=== PATIENT | female | born 2005 | race Caucasian/White ===

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

== ENCOUNTER 2023-04-10 02:13 | Emergency (ER) | payer MEDICAID ==
[~2023-04-10] VITALS: Ht 165.1 cm; Wt 75.4 kg
[~2023-04-10 02:13] MED LIST: ACE3T PO; BACL5TAB2 PO
[2023-04-10] MEDS ORDERED: ONDANSETRON ODT 4 MG TAB PO ONE (02:45)
[2023-04-10 03:10] LABS: Basophils # (auto) 0.1 10 ^3/uL (0-0.2); Basophils % (auto) 0.6 % (0.0-2.0); Eosinophils # (auto) 0.2 10 ^3/uL (0-0.8); Eosinophils % (auto) 2.1 % (0.0-7.0); Hematocrit 39.6 % (36.0-46.0); Hemoglobin 12.9 g/dL (12.2-16.2); Lymphocytes # (auto) 0.9 10 ^3/uL (0.4-5.4); Lymphocytes % (auto) 11.2 % (10.0-50.0); Mean Corpuscular Hemoglobin 28.3 pg (28.0-32.0); Mean Corpuscular Hgb Conc. 32.6 g/dL (32.0-36.0); Mean Corpuscular Volume 86.8 fL (80.0-100.0); Monocytes # (auto) 0.5 10 ^3/uL (0-1.3); Neutrophils # (auto) 6.8 10 ^3/uL (1.6-8.6); Neutrophils % (auto) 80.1 % (37.0-80.0); Red Blood Cells 4.56 10^6/uL (4.0-5.20); Red Cell Distribution Width 15.9 % (11.8-14.3); White Blood Cell 8.5 10^3/uL (4.4-10.8)
[2023-04-10 03:23] VITALS: BP 116/71; TEMP 97.8; O2SAT 96
[2023-04-10 03:32] LABS: Alanine Aminotransferase 35 U/L (7-40); Albumin 5.1 g/dL (3.2-4.8); Alkaline Phosphatase 66 U/L (46-116); Anion Gap 9 (5-15); Aspartate Aminotransferase 20 U/L (13-40); BUN/Creatinine Ratio 9.3 (10.0-20.0); Bilirubin, Total 1.3 mg/dL (0.2-1.0); Blood Urea Nitrogen 9 mg/dL (9-23); Calcium 9.7 mg/dL (8.7-10.4); Carbon Dioxide 23 mmol/L (20-30); Chloride 109 mmol/L (98-107); Glucose 103 mg/dL (74-106); Lipase 47 U/L (12-53); Potassium 4.1 mmol/L (3.5-5.1); Sodium 141 mmol/L (136-145); Total Protein 7.9 g/dL (5.7-8.2)
[2023-04-10] MEDS ORDERED: ZOFR4T PO (04:20)
[2023-04-10 04:46] VITALS: PULSE 67; RESP 18
== END 2023-04-10 04:31 | disposition home or self-care (01) ==
LOC: ER 02:13
DX: R10.13 Epigastric pain (principal); R10.2 Pelvic and perineal pain; R11.2 Nausea with vomiting, unspecified; J45.909 Unspecified asthma, uncomplicated; Z79.899 Other long term (current) drug therapy; Z88.2 Allergy status to sulfonamides; Z88.8 Allergy status to other drugs, medicaments and biological substances
CPT/HCPCS: 36415; 80053; 83690; 84702; 85025; 99283; Q0162

== ENCOUNTER 2023-06-01 19:48 | Emergency (ER) | payer MEDICAID ==
[~2023-06-01] VITALS: Ht 165.1 cm; Wt 72.0 kg
[~2023-06-01 19:48] MED LIST changes: +ZOFR4T PO
[2023-06-01 20:24] LABS: Basophils # (auto) 0.1 10 ^3/uL (0-0.2); Basophils % (auto) 1.2 % (0.0-2.0); Eosinophils # (auto) 0.3 10 ^3/uL (0-0.8); Eosinophils % (auto) 4.1 % (0.0-7.0); Hematocrit 37.1 % (36.0-46.0); Lymphocytes # (auto) 3.1 10 ^3/uL (0.4-5.4); Lymphocytes % (auto) 41.7 % (10.0-50.0); Mean Corpuscular Hemoglobin 27.3 pg (28.0-32.0); Mean Corpuscular Hgb Conc. 32.3 g/dL (32.0-36.0); Mean Corpuscular Volume 84.7 fL (80.0-100.0); Monocytes # (auto) 0.7 10 ^3/uL (0-1.3); Monocytes % (auto) 9.2 % (0.0-12.0); Neutrophils # (auto) 3.3 10 ^3/uL (1.6-8.6); Neutrophils % (auto) 43.8 % (37.0-80.0); Nucleated Red Blood Cells % 0.1 %; Red Blood Cells 4.38 10^6/uL (4.0-5.20); Red Cell Distribution Width 15.1 % (11.8-14.3); White Blood Cell 7.5 10^3/uL (4.4-10.8)
[2023-06-01 20:46] LABS: Alanine Aminotransferase 34 U/L (7-40); Albumin 4.8 g/dL (3.2-4.8); Alkaline Phosphatase 74 U/L (46-116); Anion Gap 8 (5-15); Aspartate Aminotransferase 30 U/L (13-40); BUN/Creatinine Ratio 10.6 (10.0-20.0); Blood Urea Nitrogen 9 mg/dL (9-23); Calcium 10.2 mg/dL (8.5-10.1); Carbon Dioxide 25 mmol/L (20-30); Chloride 108 mmol/L (98-107); Glucose 88 mg/dL (74-106); Potassium 3.6 mmol/L (3.5-5.1); Sodium 141 mmol/L (136-145)
[2023-06-01 20:47] LABS: Bilirubin, Total 0.3 mg/dL (0.2-1.0)
[2023-06-01 20:51] LABS: Urine Bacteria FEW /hpf (None Seen); Urine Blood 2+ /uL (Negative); Urine Clarity Clear (Clear); Urine Color Colorless (Yellow); Urine Protein, UAD Negative (Negative); Urine Specific Gravity 1.002 (1.001-1.035); Urine Urobilinogen Normal (Negative); Urine WBC 2 /hpf (0 - 5); Urine pH 6.5 (5.0-8.0)
[2023-06-01 21:54] VITALS: BP 126/82; PULSE 60; RESP 18; TEMP 98.1; O2SAT 100
[2023-06-01 21:56] VITALS: PULSE 81
== END 2023-06-01 21:58 | disposition left against medical advice (07) ==
LOC: ER 19:48
DX: R07.89 Other chest pain (principal); M79.18 Myalgia, other site; M79.661 Pain in right lower leg; J45.909 Unspecified asthma, uncomplicated; Z87.442 Personal history of urinary calculi; Z32.02 Encounter for pregnancy test, result negative; Z88.2 Allergy status to sulfonamides
CPT/HCPCS: 36415; 71045; 80053; 81001; 81025; 83880; 84484; 85025; 93005; 93971

== ENCOUNTER 2023-06-02 21:05 | Emergency (ER) | payer MEDICAID ==
[~2023-06-02] VITALS: Ht 165.1 cm; Wt 72.2 kg
[2023-06-02 21:51] VITALS: BP 124/76; PULSE 70; RESP 18; TEMP 98.5; O2SAT 99
[2023-06-03] MEDS: IBUPROFEN 400 MG TAB PO ONE (01:09)
== END 2023-06-03 01:10 | disposition home or self-care (01) ==
LOC: ER 21:05
DX: R51.9 Headache, unspecified (principal); J45.909 Unspecified asthma, uncomplicated

== ENCOUNTER 2023-06-04 21:11 | Emergency (ER) | payer MEDICAID ==
[~2023-06-04] VITALS: Ht 165.1 cm; Wt 70.5 kg
[2023-06-04 23:46] VITALS: BP 125/63; PULSE 62; RESP 18; TEMP 98; O2SAT 98
[2023-06-04] MEDS: HYDROcodone-ACET 5/325MG TAB PO ONE (23:50)
== END 2023-06-05 00:47 | disposition home or self-care (01) ==
LOC: ER 21:11
DX: R51.9 Headache, unspecified (principal); J45.909 Unspecified asthma, uncomplicated; Z87.442 Personal history of urinary calculi

== ENCOUNTER 2023-06-17 19:05 | Emergency (ER) | payer MEDICAID ==
[~2023-06-17] VITALS: Ht 165.1 cm; Wt 71.3 kg
[2023-06-17 19:25] VITALS: BP 130/75; PULSE 94; RESP 16; O2SAT 100
[2023-06-17] MEDS ORDERED: IBUP1TAB5 PO (21:45)
[2023-06-17] MEDS ORDERED: AUG875T PO (21:45)
[2023-06-17] MEDS ORDERED: ALBUAER3 IN (21:45)
[2023-06-17] MEDS ORDERED: BENZ200C64 PO (21:45)
[2023-06-17] MEDS ORDERED: OFL50TS OT (21:45)
[2023-06-17 23:12] VITALS: TEMP 99
[2023-06-17] MEDS: IBUPROFEN 600 MG TAB PO ONE (23:12)
[2023-06-17] MEDS: AMOXICILLIN/CLAVUL 875 MG TAB PO ONE (23:12)
== END 2023-06-17 23:16 | disposition home or self-care (01) ==
LOC: ER 19:05
DX: J06.9 Acute upper respiratory infection, unspecified (principal); R50.9 Fever, unspecified; H66.93 Otitis media, unspecified, bilateral; J45.909 Unspecified asthma, uncomplicated

== ENCOUNTER 2023-08-21 19:49 | Emergency (ER) | payer MEDICAID ==
[~2023-08-21] VITALS: Ht 165.1 cm; Wt 69.4 kg
[~2023-08-21 19:49] MED LIST changes: +ALBUAER3 IN; +AUG875T PO; +BENZ200C64 PO; +IBUP1TAB5 PO; +OFL50TS OT
[2023-08-21 20:10] VITALS: BP 120/88; PULSE 73; RESP 16; O2SAT 100
== END 2023-08-21 22:50 | disposition left against medical advice (07) ==
LOC: ER 19:49
DX: R10.2 Pelvic and perineal pain (principal); J45.909 Unspecified asthma, uncomplicated; Z87.442 Personal history of urinary calculi; Z88.8 Allergy status to other drugs, medicaments and biological substances; Z79.899 Other long term (current) drug therapy

== ENCOUNTER 2023-09-02 22:25 | Emergency (ER) | payer MEDICAID ==
[~2023-09-02] VITALS: Ht 165.1 cm; Wt 69.4 kg
[2023-09-02 22:40] VITALS: BP 120/69; PULSE 68; RESP 14; TEMP 98.2; O2SAT 98
[2023-09-03] MEDS ORDERED: NABU-72 PO (02:16)
[2023-09-03] MEDS ORDERED: PRED20TA2 PO (02:16)
== END 2023-09-03 02:34 | disposition home or self-care (01) ==
LOC: ER 22:25
DX: M79.645 Pain in left finger(s) (principal); J45.909 Unspecified asthma, uncomplicated; Z87.442 Personal history of urinary calculi; Z88.8 Allergy status to other drugs, medicaments and biological substances; Z79.899 Other long term (current) drug therapy
CPT/HCPCS: 73130

== ENCOUNTER 2023-09-06 23:13 | Emergency (ER) | payer MEDICAID ==
[~2023-09-06] VITALS: Ht 165.1 cm; Wt 69.3 kg
[2023-09-06 23:13] VITALS: BP 119/78; PULSE 88; RESP 20; O2SAT 97
[~2023-09-06 23:13] MED LIST changes: +NABU-72 PO; +PRED20TA2 PO
[2023-09-07] MEDS ORDERED: PRED20TA2 PO (02:42)
[2023-09-07] MEDS ORDERED: ALBUAER3 IN (02:42)
== END 2023-09-07 02:52 | disposition home or self-care (01) ==
LOC: ER 23:13
DX: J20.9 Acute bronchitis, unspecified (principal); J45.909 Unspecified asthma, uncomplicated; Z87.442 Personal history of urinary calculi

== ENCOUNTER 2023-09-19 17:59 | Emergency (ER) | payer MEDICAID ==
[~2023-09-19] VITALS: Ht 162.6 cm; Wt 70.2 kg
[2023-09-19 19:50] VITALS: BP 116/79; PULSE 79; RESP 16; TEMP 98.1; O2SAT 100
[2023-09-19] MEDS ORDERED: ACET500T58 PO (22:34)
[2023-09-19] MEDS ORDERED: AMOX875T4 PO (22:34)
== END 2023-09-19 22:49 | disposition home or self-care (01) ==
LOC: ER 17:59
DX: S00.03XA Contusion of scalp, initial encounter (principal); J01.90 Acute sinusitis, unspecified; R42 Dizziness and giddiness; J45.909 Unspecified asthma, uncomplicated; Z87.442 Personal history of urinary calculi; Z32.02 Encounter for pregnancy test, result negative; X58.XXXA Exposure to other specified factors, initial encounter; Y93.89 Activity, other specified; Y92.89 Other specified places as the place of occurrence of the external cause; Y99.8 Other external cause status
CPT/HCPCS: 70450; 81025

== ENCOUNTER 2024-01-24 19:40 | Emergency (ER) | payer MEDICAID, OTHER ==
[~2024-01-24] VITALS: Ht 165.1 cm; Wt 71.8 kg
[~2024-01-24 19:40] MED LIST changes: +ACET500T58 PO; +AMOX875T4 PO
[2024-01-24 22:25] VITALS: BP 128/67; PULSE 58; TEMP 97.8
[2024-01-24 22:26] VITALS: RESP 18; O2SAT 96
== END 2024-01-24 22:35 | disposition home or self-care (01) ==
LOC: ER 19:40
DX: T18.9XXA Foreign body of alimentary tract, part unspecified, initial encounter (principal); J45.909 Unspecified asthma, uncomplicated; R11.10 Vomiting, unspecified; Z79.52 Long term (current) use of systemic steroids; Z88.1 Allergy status to other antibiotic agents; Z88.2 Allergy status to sulfonamides; Z87.442 Personal history of urinary calculi; W44.9XXA Unspecified foreign body entering into or through a natural orifice, initial encounter; Y93.89 Activity, other specified; Y92.89 Other specified places as the place of occurrence of the external cause; Y99.8 Other external cause status
CPT/HCPCS: 74018

== ENCOUNTER 2024-02-09 00:01 | Emergency (ER) | payer OTHER, MEDICAID ==
[~2024-02-09] VITALS: Ht 165.1 cm; Wt 69.8 kg
[2024-02-09 00:25] VITALS: BP 128/75; PULSE 89; RESP 18; O2SAT 98
== END 2024-02-09 01:46 | disposition home or self-care (01) ==
LOC: ER 00:01
DX: R13.10 Dysphagia, unspecified (principal); J45.909 Unspecified asthma, uncomplicated; Z88.1 Allergy status to other antibiotic agents; Z88.2 Allergy status to sulfonamides; Z79.52 Long term (current) use of systemic steroids; Z79.899 Other long term (current) drug therapy